=== PATIENT | female | born 1975 | race Hispanic/Latino ===

== ENCOUNTER 2017-12-21 09:22 | Emergency (ER) | payer OTHER, SELFPAY | END 2017-12-21 11:13 | disposition home or self-care (01) | LOC: M ED 09:22 | DX: S91.341A Puncture wound with foreign body, right foot, initial encounter (principal); L03.115 Cellulitis of right lower limb; W45.8XXA Other foreign body or object entering through skin, initial encounter; Y92.9 Unspecified place or not applicable; Y93.9 Activity, unspecified; Y99.9 Unspecified external cause status; D64.9 Anemia, unspecified | CPT/HCPCS: 10120 ==

== ENCOUNTER 2024-04-14 12:12 | Emergency (ER) | payer OTHER ==
[~2024-04-14 12:12] MED LIST: KEFL500C17 PO; MOBI4TAB PO
[2024-04-14 13:46] VITALS: TEMP 97.9
[2024-04-14] MEDS: CYCLOBENZAPRINE 10MG TABLET PO ONE (13:49)
[2024-04-14] MEDS: KETOROLAC 30 MG/ML 1ML VIAL IV ONE (13:49)
[2024-04-14 13:59] LABS: BASO # 0.1 10^3/uL (0.0-0.2); BASO % 0.8 % (0.0-1.0); EOS # 0.1 10^3/uL (0.0-0.5); EOS % 0.8 % (0.0-3.0); HEMATOCRIT 37.9 % (36.0-47.0); HEMOGLOBIN 11.7 g/dl (12.0-15.5); LYMPH # 1.6 10^3/uL (1.5-5.0); LYMPH % 20.8 % (24.0-44.0); MEAN CORPUSCULAR HEMOGLOBIN 25.3 pg (27.0-33.0); MEAN CORPUSCULAR HGB CONC 30.9 g/dl (32.0-36.5); MONO # 0.4 10^3/uL (0.0-0.8); MONO % 5.3 % (2.0-8.0); NEUTROPHILS # 5.6 10^3/uL (1.5-8.5); NEUTROPHILS % 71.7 % (36.0-66.0); PLATELET COUNT, AUTOMATED 295 10^3/uL (150-450); RED BLOOD COUNT 4.62 10^6/uL (4.00-5.40); WHITE BLOOD COUNT 7.8 10^3/uL (4.0-10.0)
[2024-04-14 14:11] LABS: INR 1.01; PARTIAL THROMBOPLASTIN TIME 26.7 SECONDS (24.8-34.2)
[2024-04-14 14:16] LABS: ALBUMIN 4.3 G/DL (3.2-5.2); ALKALINE PHOSPHATASE 135 U/L (46-116); ALT/SGPT 23 U/L (7.0-40); AST/SGOT 22 U/L (<34); BILIRUBIN,DIRECT 0.2 MG/DL (<0.4); BILIRUBIN,TOTAL 0.6 MG/DL (0.3-1.2); BLOOD UREA NITROGEN 20 MG/DL (9-23); CALCIUM LEVEL 9.4 MG/DL (8.5-10.1); CARBON DIOXIDE LEVEL 27 MMOL/L (20-31); CHLORIDE LEVEL 107 MMOL/L (98-107); CK-MB VALUE MASS < 1.0 NG/ML (<3.6); CPK CREATINE PHOSPHOKINASE 226 U/L (34-145); CREATININE FOR GFR 0.77 MG/DL (0.55-1.30); GLOMERULAR FILTRATION RATE > 60.0 (>51); GLUCOSE, FASTING 99 MG/DL (60-100); MB/CK RELATIVE INDEX 0.44 (< OR =4); POTASSIUM SERUM 3.8 MMOL/L (3.5-5.1); SODIUM LEVEL 140 MMOL/L (136-145); TOTAL PROTEIN 7.8 G/DL (5.7-8.2)
[2024-04-14] MEDS ORDERED: ISOVUE-370 76% 100ML VIAL As Ordered ONE (14:19)
[2024-04-14 14:20] LABS: FREE T4 1.13 NG/DL (0.89-1.76); THYROID STIMULATING HORMONE 1.244 uIU/ML (0.55-4.78)
[2024-04-14 15:45] LABS: CK-MB VALUE MASS < 1.0 NG/ML (<3.6)
[2024-04-14 15:48] LABS: CPK CREATINE PHOSPHOKINASE 218 U/L (34-145); MB/CK RELATIVE INDEX 0.45 (< OR =4)
[2024-04-14 17:23] LABS: CPK CREATINE PHOSPHOKINASE 202 U/L (34-145)
[2024-04-14 17:25] LABS: CK-MB VALUE MASS < 1.0 NG/ML (<3.6); MB/CK RELATIVE INDEX 0.49 (< OR =4)
[2024-04-14] MEDS ORDERED: CYCL-707 PO (18:42)
[2024-04-14 18:55] VITALS: BP 145/64; O2SAT 100
== END 2024-04-14 19:00 | disposition home or self-care (01) ==
LOC: M ED 12:12
DX: M54.6 Pain in thoracic spine (principal); M19.011 Primary osteoarthritis, right shoulder; I45.81 Long QT syndrome; Z79.899 Other long term (current) drug therapy
CPT/HCPCS: 71275; 73030; 73080; 80048; 80076; 82550; 82553; 84439; 84443; 84484; 85025; 85610; 85730; 93005; 93041; 94760; 96374; 99285; J1885; Q9967

== ENCOUNTER 2024-05-06 19:43 | Emergency (ER) | payer OTHER ==
[~2024-05-06] VITALS: Ht 157.5 cm; Wt 66.2 kg
[~2024-05-06 19:43] MED LIST changes: +CYCL-707 PO
[2024-05-06] MEDS ORDERED: AMOX500C PO (21:51)
[2024-05-06] MEDS ORDERED: IBUP-1022 PO (21:51)
[2024-05-06] MEDS: AUGMENTIN 875 MG TAB PO ONE (22:07)
[2024-05-06] MEDS: KETOROLAC 60MG 2ML VIAL IM ONE (22:08)
[2024-05-06 22:16] VITALS: BP 137/91; TEMP 97.1; O2SAT 99
== END 2024-05-06 22:24 | disposition home or self-care (01) ==
LOC: M ED 19:43
DX: K04.6 Periapical abscess with sinus (principal); K02.9 Dental caries, unspecified; Z79.2 Long term (current) use of antibiotics; Z79.1 Long term (current) use of non-steroidal anti-inflammatories (NSAID)
CPT/HCPCS: 96372; 99283; J1885